=== PATIENT | female | born 1970 | race Caucasian/White ===

== ENCOUNTER 2021-05-28 17:54 | Emergency (ER) | payer OTHER ==
[2021-05-28] MEDS ORDERED: Ibuprofen 400 MG TAB ONE (19:45)
== END 2021-05-28 19:48 | disposition home or self-care (01) ==
LOC: MADERS 17:54
DX: S16.1XXA Strain of muscle, fascia and tendon at neck level, initial encounter (principal); R91.1 Solitary pulmonary nodule; R51.9 Headache, unspecified; F17.210 Nicotine dependence, cigarettes, uncomplicated; V43.62XA Car passenger injured in collision with other type car in traffic accident, initial encounter
CPT/HCPCS: 70450; 72125